=== PATIENT | female | born 1935 | race Caucasian/White ===

== ENCOUNTER 2024-11-18 13:55 | Emergency (ER) | payer OTHER ==
[~2024-11-18] VITALS: Ht 157.5 cm; Wt 48.5 kg
[~2024-11-18 13:55] MED LIST: ATOR40TA69 PO; CEFD300C3 PO; DONE10TA43 PO; FERS325 PO; MEMA5TAB16 PO
--- NOTE | 2024-11-18 14:44 | EKG ---
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
--- NOTE | 2024-11-18 15:27 | HMCIMG ---
Wrist 3 views- AP, lateral, oblique right History: redness Comparison: none Findings and impression: Degenerative changes of the radiocarpal joint and of the first carpometacarpal joint. No fractures or dislocations. Mild osteopenia. Mild degenerative changes of the interphalangeal joints.
[2024-11-18 16:13] LABS: BASOPHILS # (AUTO) 0.05 K/uL (0.00-0.20); BASOPHILS % (AUTO) 0.6 % (0.0-5.0); EOSINOPHILS # (AUTO) 0.06 K/uL (0.00-0.70); EOSINOPHILS % (AUTO) 0.7 % (0.0-8.0); IMMATURE GRANULOCYTE ABSOLUTE 0.04 K/uL (0-1); LYMPHOCYTES # (AUTO) 1.1 K/uL (1.0-4.8); LYMPHOCYTES % (AUTO) 11.7 % (21.0-51.0); MEAN CORPUSCULAR HEMOGLOBIN 29.2 pg (27.0-33.0); MEAN CORPUSCULAR HGB CONC 32.3 g/dL (32.0-36.0); MEAN CORPUSCULAR VOLUME 90.3 fL (79-99); MONOCYTES # (AUTO) 0.9 K/uL (0.1-1.0); MONOCYTES % (AUTO) 10.4 % (3.0-13.0); NEUTROPHILS # (AUTO) 6.9 K/uL (1.8-7.7); NEUTROPHILS % (AUTO) 76.2 % (40.0-77.0); PLATELET COUNT (AUTO) 269 K/uL (130-400); RED BLOOD CELL COUNT(AUTO) 4.32 MIL/uL (4.00-5.50); RED CELL DISTRIBUTION WIDTH 13.3 % (11.0-15.5)
[2024-11-18 16:22] LABS: CREATININE 0.6 mg/dL (0.5-1.0); POTASSIUM 3.8 mmol/L (3.5-5.1)
[2024-11-18 16:25] LABS: INR 1.04 (0.85-1.15)
[2024-11-18 16:26] LABS: PARTIAL THROMBOPLASTIN TIME 26.7 SEC (26.3-35.5)
--- NOTE | 2024-11-18 16:39 | NUR ---
OKAY TO GIVE ROCEPHIN IV A PER ANDRAE GERMAIN, SINCE PATIENT HAS 20G ON RAC IN PLACE
[2024-11-18] MEDS ORDERED: CEPH500B PO (16:42)
--- NOTE | 2024-11-18 16:43 | ERN ---
General Chief Complaint: Upper Extremity Pain/Injury Stated Complaint: NUMBNESS ON LEFT ARM/ DISCOLARTION/ VERY PAINFUL Time Seen by MD: 14:26 Time Seen by Midlevel: 14:26 Source: patient History of Present Illness Initial Comments Patient is an 89-year-old female with a past medical history of Alzheimer's being brought in by daughter for evaluation of redness and pain to the dorsal aspect of the left hand/wrist area. The redness was noticed today. No fever, chills, or any other symptoms reported at this time. The patient denies falling or injuring her left hand. Allergies: Coded Allergies: No Known Allergies (Unverified Allergy, Unknown, 06/30/24) Home Meds Active Scripts Ferrous Sulfate (Ferrous Sulfate) 325 Mg (65 Mg Iron) Ectab, 325 MG PO every other day for 30 Days, #30 TAB.EC Prov:QUINN ROSENBERG SENIOR CLINICAL CONSULTANT 07/02/24 Cefdinir (Cefdinir) 300 Mg Capsule, 1 CAP PO BID for 7 Days, #14 CAP 0 Refills Prov:QUINN ROSENBERG NP 07/02/24 Reported Medications Donepezil HCl (Donepezil HCl) 10 Mg Tablet, 1 TAB PO DAILY for 30 Days, #30 TAB 0 Refills 07/01/24 Memantine HCl (Memantine HCl) 5 Mg Tablet, 1 TAB PO BID for 30 Days, #60 TAB 0 Refills 07/01/24 Atorvastatin Calcium (LIPITOR) 40 Mg Tablet, 1 TAB PO DAILY for 30 Days, #30 TAB 0 Refills 07/01/24 Past Medical History Past Medical History: Dementia, High Cholesterol Past Surgical History: Hysterectomy Surgical History Other: ANKLE ROS Dictation CONSTITUTIONAL: Negative except for HPI HEAD/FACE: Negative except for HPI EENT: Negative except for HPI RESPIRATORY: Negative except for HPI GASTROINTESTINAL/ABDOMINAL: Negative except for HPI GENITOURINARY: Negative except for HPI MUSCULOSKELETAL: Negative except for HPI INTEGUMENTARY: Negative except for HPI NEUROLOGICAL/PSYCH: Negative except for HPI HEMATOLOGIC/LYMPHATIC: Negative except for HPI All Systems Negative, Except as noted above. 13 point review of systems assessed and all negative except for above. Physical Exam Physical Exam Dictation PHYSICAL EXAM: GENERAL: alert,, awake oriented x 3 HEENT: EOMI, Sclera non icteric, moist mucosa NECK: Supple, no JVD, trachea midline LUNGS: Clear breath sounds bilaterally. No wheezes HEART: Regular rate and rhythm. Normal S1 and S2, without murmurs ABD: Abdomen soft, nontender. Bowel sounds present EXT: Erythema and tenderness overlying the dorsal aspect of the left hand NEURO: Alert and oriented to person, follows commands Results Laboratory and Microbiology Lab and Micro Result Laboratory Tests Test 11/18/24 16:00 White Blood Count 9.0 K/uL (4.8-10.8) Red Blood Count 4.32 MIL/uL (4.00-5.50) Hemoglobin 12.6 g/dL (12.0-16.0) Hematocrit 39.0 % (36-48) Mean Corpuscular Volume 90.3 fL (79-99) Mean Corpuscular Hemoglobin 29.2 pg (27.0-33.0) Mean Corpuscular Hemoglobin Concent 32.3 g/dL (32.0-36.0) Red Cell Distribution Width 13.3 % (11.0-15.5) Platelet Count 269 K/uL (130-400) Mean Platelet Volume 10.2 fL (7.5-10.5) Immature Granulocyte % (Auto) 0.4 % (0-1) Neutrophils (%) (Auto) 76.2 % (40.0-77.0) Lymphocytes (%) (Auto) 11.7 % (21.0-51.0) L Monocytes (%) (Auto) 10.4 % (3.0-13.0) Eosinophils (%) (Auto) 0.7 % (0.0-8.0) Basophils (%) (Auto) 0.6 % (0.0-5.0) Neutrophils # (Auto) 6.9 K/uL (1.8-7.7) Lymphocytes # (Auto) 1.1 K/uL (1.0-4.8) Monocytes # (Auto) 0.9 K/uL (0.1-1.0) Eosinophils # (Auto) 0.06 K/uL (0.00-0.70) Basophils # (Auto) 0.05 K/uL (0.00-0.20) Absolute Immature Granulocyte (auto 0.04 K/uL (0-1) Nucleated Red Blood Cells 0.0 % (0.0-0.19) Prothrombin Time 11.0 SEC (9.6-11.6) Prothromb Time International Ratio 1.04 (0.85-1.15) Activated Partial Thromboplast Time 26.7 SEC (26.3-35.5) Sodium Level 141 mmol/L (136-145) Potassium Level 3.8 mmol/L (3.5-5.1) Chloride Level 105 mmol/L (101-111) Carbon Dioxide Level 32 mmol/L (21-32) Blood Urea Nitrogen 21 mg/dL (7-18) H Creatinine 0.6 mg/dL (0.5-1.0) Glomerular Filtration Rate Calc 87 mL/min (>90) Random Glucose 114 mg/dL (70-105) H Lactic Acid Level 1.6 mmol/L (0.8-2.5) Total Calcium 8.6 mg/dL (8.5-10.1) Troponin I High Sensitivity 8 ng/L (4-50) Labs Reviewed?: Yes MDM MDM: Differential diagnosis: Cellulitis, fracture, contusion, gout There are no social concerns with this patient. Prescription drug management Prescriptions will include: Keflex Medical management and examination interpretation discussions were had by me with other qualified healthcare professionals as indicated for the patient's care. ED Course Orders Procedure Category Date Status Time Cbc With Differential LAB 11/18/24 Complete 14:26 Basic Metabolic Panel LAB 11/18/24 Complete 14:26 Lactic Acid LAB 11/18/24 Complete 14:26 Procalcitonin LAB 11/18/24 In Process 14:26 Pt And Ptt LAB 11/18/24 Complete 14:26 12 Lead Ekg Tracing- EKG 11/18/24 Complete Technical 14:37 Troponin I High LAB 11/18/24 Complete Sensitivity 14:37 Wrist Comp 3+Vws Lt RAD 11/18/24 Resulted 14:37 Hand 3+Vws Lt RAD 11/18/24 Resulted 14:37 Ceftriaxone 1g Vial PHA 11/18/24 Complete (Rocephine 1g Inj) 16:30 Current Medications Medications (Trade) Dose Ordered Sig/Charan Route PRN Reason Start Time Stop Time Status Last Admin Dose Admin Ceftriaxone Sodium (ROCEphine 1G INJ) 1 gm ONCE ONCE IM 11/18/24 16:30 11/18/24 16:32 DC Vital Signs Date Time Temp Pulse Resp B/P (MAP) Pulse Ox O2 Delivery O2 Flow Rate FiO2 11/18/24 14:10 98.2 64 16 110/53 Room Air 0 11/18/24 14:00 98.2 64 16 110/53 98 Room Air* 0 21 DX & DISP Disposition: Discharge Departure Impression: Primary Impression: Cellulitis of left hand Condition: Stable Scripts Cephalexin Monohydrate (Keflex) 500 Mg Cap 500 MG PO BID for 7 Days, #14 CAP Prov: ANDRAE ELISE 11/18/24 Additional Instructions: Your blood work today is unremarkable. No signs of systemic infection. This appears to be an isolated superficial skin infection of the left hand. We will treat with antibiotics. X-ray does not show any evidence of an acute fracture or dislocation. You were given 1 g of ceftriaxone in the emergency department. We have given you a prescription for oral antibiotics for outpatient management. Follow up with your primary care doctor in 2-3 days for repeat evaluation. Referrals: BRIANA ELISE MD (PCP) Time of Disposition: 16:40 I have reviewed the case, and I agree with, Diagnosis and Plan I performed the substantive portion of the visit. I have reviewed and personally made and approve the management plan that is documented in the note by myself or the ANA. I acknowledge for responsibility for the patient's management plan. ANDRAE ELISE November 18, 2024 16:43
[2024-11-18] MEDS: cefTRIAXone 1G VIAL IM ONE (16:51)
[2024-11-18 17:30] VITALS: BP 110/53; PULSE 64; RESP 16; TEMP 99.2; O2SAT 95
--- NOTE | 2024-11-18 17:42 | NUR ---
DC PATIENT WAS DC'D BY ALESHIA CARRION [employer] TECHNICIAN [employer] DC;[employer] PATIENTS IV WITH CATH STILL IN PLACE AND APPLIED 2X2 GAUZE WITH TAPE I EXPLAINED TO DAUGHTER OF PATIENT FOR PATIENT TO FOLLOW UP WITH PCP AND PROVIDED HER INFO REGARDING DIAGNOSIS AND NEW PRESCRIPTIONS, PATIENT WAS TAKEN VIA WHEELCHAIR BY TYRELL BOWLES, ACCOMPANIED BY DAUGHTER, NO COMPLICATIONS
== END 2024-11-18 17:40 | disposition home or self-care (01) ==
LOC: EDH 13:55
DX: L03.114 Cellulitis of left upper limb (principal); M79.642 Pain in left hand; E78.00 Pure hypercholesterolemia, unspecified; Z79.899 Other long term (current) drug therapy; Z90.710 Acquired absence of both cervix and uterus
CPT/HCPCS: 99285; 84484; 80048; 85025; 85610; 85730; 83605; 36415; 73130; 73110; 96372; 93005; 84145; J0696